=== PATIENT | male | born 1990 | race Hispanic/Latino ===

== ENCOUNTER 2016-04-14 23:24 | Emergency (ER) | payer OTHER ==
[~2016-04-14] VITALS: Ht 172.7 cm; Wt 90.9 kg
[2016-04-14 23:29] VITALS: BP 135/86; PULSE 77; RESP 16; O2SAT 98
[2016-04-15 00:44] LABS: Mean Corpuscular Hemoglobin 28.3 pg (27.0-35.0); Mean Corpuscular Volume 83.9 fL (81-100)
[2016-04-15 00:45] LABS: BASOPHILS % (AUTO) 0.5 % (0-3); EOSINOPHILS % (AUTO) 2.1 % (0-5); MONOCYTES % (AUTO) 10.3 % (4-12); NEUTROPHILS % (AUTO) 48.3 % (40-74); Platelet Count 265 bil/L (150-400)
--- NOTE | 2016-04-15 00:58 | ED.REPORT ---
HPI-Abd Pain M Under 39 Date of Service Apr 15, 2016 ED Provider: Primo Mueller MD Patient is a 25 year old male who presents to the ED complaining of severe midline abdominal pain and burning onset a few hours ago while laying in bed. He claims he feels like he needs to make a BM but "nothing comes out". He denies nausea, vomiting, diarrhea, melena, hematochezia, or any other symptoms. This is his fourth episode, with each of these self-limited. He has not sought evaluation until now. Each of these episodes appears to been worse in the last. Nursing Notes Stated Complaint: ABDOMINAL PAIN Chief Complaint: Male Abdominal Pain Nursing Notes Reviewed: Yes Allergies: Coded Allergies: No Known Allergies (Unverified , 04/14/16) Scheduled Omeprazole (Omeprazole) 20 Mg Tablet.dr 20 MG PO BID Scheduled PRN Ondansetron ODT (Ondansetron ODT) 8 Mg Tab.rapdis 8 MG PO QID PRN PRN For Nausea General Time Seen by MD: 00:32 Chief Complaint Abdominal pain Hx Obtained From: Patient Arrived By: Walk-in Sudden in Onset?: Yes Similar Sx Previous: Yes Past Medical History Past Medical History Healthy Past Surgical History Denies Social History Alcohol Use: "Social" Other Social History: Good social support Ambulatory Status Independent Review of Systems GI: Reports: Abdominal pain, Denies: Diarrhea, Hematochezia, Melena, Nausea, Vomiting Complete sys rev & neg: except as marked. Physical Exam Initial Vital Signs Vital Signs (First) Date Time Temp Pulse Resp B/P Pulse Ox O2 Delivery O2 Flow Rate FiO2 04/14/16 23:29 36.1 77 16 135/86 98 Room Air Initial VS: Reviewed Head / Eyes: Atraumatic, Normocephalic Skin: Warm, Dry Neurologic: Alert, Oriented, Nonfocal Psychiatric: Mood/affect normal, Behavior normal, Normal thought content General/Constitutional: Awake, Alert, Well developed writhing Respiratory / Chest: Breath sounds NL, Breath sounds = bilat, No respiratory distress Cardiovascular: Heart rate NL, Regular rhythm, Heart sounds NL Abdomen: Soft Mid epigastrium pain Back: Inspection NL Interpretation & Diagnostics Lab Results Interpretation Result Diagram: 04/15/16 0013 04/15/16 0052 Test 04/15/16 00:13 04/15/16 00:15 04/15/16 00:52 White Blood Count 11.0th/mm3 (3.8-10.1) Red Blood Count 5.33mil/mm3 (4.40-5.80) Hemoglobin 15.1g/dL (13.8-17.2) Hematocrit 44.7% (41.0-50.0) Mean Corpuscular Volume 83.9fL (81-100) Mean Corpuscular Hemoglobin 28.3pg (27.0-35.0) Mean Corpuscular Hemoglobin Concent 33.8% (32.0-37.0) Red Cell Distribution Width 13.2% (12.3-15.4) Platelet Count 265bil/L (150-400) Neutrophils (%) (Auto) 48.3% (40-74) Lymphocytes (%) (Auto) 38.6% (14-46) Monocytes (%) (Auto) 10.3% (4-12) Eosinophils (%) (Auto) 2.1% (0-5) Basophils (%) (Auto) 0.5% (0-3) Band Neutrophils % 0% (1-5) Urine Color Yellow (YELLOW) Urine Appearance Clear (CLEAR,HAZY) Urine pH 5.5 (5.0-8.0) Urine Specific [place] 1.025 (1.003-1.035) Urine Protein Negativemg/dL (NEG,TRACE) Urine Glucose (UA) Negativemg/dL (NEGATIVE) Urine Ketones Negativemg/dL (NEGATIVE) Urine Occult Blood Small (NEGATIVE) Urine Nitrite Negative (NEGATIVE) Urine Bilirubin Negative (NEGATIVE) Urine Urobilinogen Normalmg/dL (NORMAL) Urine Leukocyte Esterase Negative (NEGATIVE) Urine RBC 0-2/hpf (0-2) Urine WBC 0-5/hpf (0-5) Urine Epithelial Cells Occasional/hpf (NONE-MOD) Urine Crystals None seen (NONE SEEN) Urine Bacteria None/hpf (NONE-FEW) Urine Hyaline Casts None/lpf (NONE) Urine Granular Casts None seen (NONE SEEN) Urine Waxy Casts None seen (NONE SEEN) Urine Red Blood Cell Casts None seen (NONE SEEN) Urine White Blood Cell Casts None seen (NONE SEEN) Urine Mucus None seen (None Seen) Urine Trichomonas None seen (NONE SEEN) Urine Yeast None (NONE SEEN) Urine Culture Reflexed Not indicated Hold Urine Received (Received) Hold Purple Top Tube Received (Received) Hold Blue Top Tube Received (Received) Sodium Level 142mEq/L (134-144) Potassium Level 3.3mEq/L (3.5-5.2) Chloride Level 102mEq/L (97-108) Carbon Dioxide Level 24mmol/L (18-29) Blood Urea Nitrogen 13mg/dL (6-20) Creatinine 0.88mg/dL (0.76-1.27) Estimat Glomerular Filtration Rate 111mL/min (>59) Glucose Level 122mg/dL (60-99) Calcium Level 9.0mg/dL (8.5-10.1) Magnesium Level 2.0mg/dL (1.6-2.6) Total Bilirubin 0.3mg/dL (0.0-1.2) Aspartate Amino Transf (AST/SGOT) 26U/L (0-50) Alanine Aminotransferase (ALT/SGPT) 45U/L (0-44) Alkaline Phosphatase 161U/L (25-150) Total Protein 7.8g/dL (6.4-8.4) Albumin 4.5g/dL (3.4-5.0) Lipase 27U/L (13-60) Hold [place] Top Tube Received (Received) Hold [place] Top Tube Received (Received) Re-Eval/Medical Decision Med Decision/Clinical Course 25-year-old with no risk factors for gallbladder disease, presents with episodic colicky pain without specific inciting factor. Pattern sounds consistent with gallbladder disease, but is a 25-year-old male without blood dyscrasia or other hemoglobin turnover condition as a risk factor, gallstones are relatively unlikely. This may be gastritis, but the colicky nature is difficult to reconcile. Begun with omeprazole twice a day. Provided with request for fasting a.m. ultrasound. Follow-up with residency clinic. Discharged pain-free in stable condition. Re-Evaluation/Progress : Time of Eval: 02:15 )( Re-Eval Abdomen: Soft Patient Status: Condition improved Re-Evaluation/Progress Note: Rechecked patient. His pain has improved significantly. Discussed lab results and plan for discharge with followup. Patient understands and agrees with plan. All questions addressed at this time. Counseled Regarding: Diagnosis, Lab results, Need for follow-up, When/why to return to ED Patient Discharge & Departure Shift Change Sign-Out Response to Therapy: Improved Primary Impression: Biliary colic Additional Impressions: Gastritis Epigastric pain Disposition: Home Discharge Condition All VS Reviewed: Yes Condition: Improved Patient Instructions: Biliary Colic (ED), Gastritis (ED) Additional Instructions: Low-fat diet Sparing use of Vicodin if needed for pain Zofran if needed for nausea Clear fluids and advance your diet slowly as tolerated Follow-up with your doctor in the office Return if any immediate issues. Call this morning for ultrasound appointment in the next two days. Present for the ultrasound after a twelve hour fast. Nothing to eat or drink prior to the ultrasound. Medicines received: Dilaudid, ondansetron, pantoprazole. Medicines prescribed for home use: Vicodin, ondansetron, omeprazole. Referrals: [facility] Scribe Attestation Portions of this note were transcribed by Ky Hankins. I, Dr. Mueller personally performed the history, physical exam and medical decision-making; I reviewed and confirmed the accuracy of the information in the transcribed note. Signed by: Ky Hankins 04/15/16, 0230 copies to: [facility] Primo Mueller MD Apr 15, 2016 00:58 KY HANKINS Apr 15, 2016 01:06
[2016-04-15] MEDS ORDERED: Ondansetron 2 mg/mL 2 mL Inj IVPUSH ONE (01:00)
[2016-04-15] MEDS ORDERED: Pantoprazole 4 mg/mL 10 mL Inj IVPUSH ONE (01:00)
[2016-04-15] MEDS ORDERED: Alum-Mag Hydrox-Simeth 30 mL Suspension PO ONE (01:00)
[2016-04-15 01:10] VITALS: BP 130/76; PULSE 72; RESP 18; O2SAT 98
[2016-04-15] MEDS: HYDROmorphone 1 mg/mL Inj IVPUSH PRN ×2 (01:29→02:42)
[2016-04-15] MEDS ORDERED: OMEP20TA86 PO (02:23)
[2016-04-15] MEDS ORDERED: ONDA8TAB10 PO (02:23)
[2016-04-15 02:27] LABS: APPEARANCE,URINE CLEAR (CLEAR,HAZY); COLOR,URINE YELLOW (YELLOW); OCCULT BLOOD,URINE SMALL (NEGATIVE); PH,URINE 5.5 (5.0-8.0); UROBILINOGEN,URINE NORMAL (NORMAL)
[2016-04-15] MEDS ORDERED: _HYDROcodone/APAP 5-325 mg Tablet PO PRN (03:15)
[2016-04-15 03:21] VITALS: BP 126/72; PULSE 72; RESP 16; O2SAT 99
== END 2016-04-15 03:41 | disposition home or self-care (01) ==
LOC: SED 23:24
DX: K80.50 Calculus of bile duct without cholangitis or cholecystitis without obstruction (principal); K29.70 Gastritis, unspecified, without bleeding
CPT/HCPCS: 36415; 80053; 81000; 83690; 83735; 85025; 96374; 96375; 96376; 99284; J1170; J2405